=== PATIENT | male | born 1995 ===

== ENCOUNTER → 2022-11-09 08:41 | Outpatient (BNVA) | payer OTHER, SELFPAY | PROVIDERS: Visit Provider Physician Assistant ==

== ENCOUNTER → 2022-11-13 08:08 | Outpatient (BNVA) | payer OTHER, SELFPAY | PROVIDERS: Visit Provider Surgery ==

== ENCOUNTER 2022-11-23 11:09 | Outpatient (REF) | payer OTHER, SELFPAY ==
--- NOTE | ~2022-11-23 | XR_ITS ---
EXAMINATION: XR CHEST CLINICAL INFORMATION: Morbid/severe obesity due to excess calories COMPARISON: None available. TECHNIQUE: 2 views of the chest were obtained. FINDINGS: No significant abnormality is noted involving the heart, lungs, mediastinum, bony thorax or soft tissues. XR/XR chest 2V IMPRESSION: Unremarkable chest examination.
--- NOTE | 2022-11-23 11:18 | ECG_ITS ---
Test Reason : MORBID OBESITY Blood Pressure : / mmHG Vent. Rate : 069 BPM Atrial Rate : 069 BPM P-R Int : 130 ms QRS Dur : 098 ms QT Int : 390 ms P-R-T Axes : 035 045 021 degrees QTc Int : 417 ms Normal sinus rhythm Normal ECG No previous ECGs available Referred By: Raudel Gutierrez Electronically Signed By:AARON ROGERS MD
[2022-11-23 11:25] LABS: MANUAL DIFF FLAG NO
[2022-11-23 11:56] LABS: Basophils Absolute Auto 0.1 X10*3/uL (0.0-0.2); Basophils Percent Auto 0.8 % (0-2); Eosinophils Absolute Auto 0.2 X10*3/uL (0.0-0.4); Eosinophils Percent Auto 3.2 % (0-4); Hematocrit 45.4 % (42.0-52.0); Hemoglobin 14.8 g/dl (14.0-18.0); Imm Gran Abs Auto 0.02 X10*3/uL (0.00-0.03); Imm Gran Pct Auto 0.3 % (0.0-0.4); Lymphocytes Absolute Auto 2.2 X10*3/uL (1.2-4.9); Mean Corpuscular HGB Conc 32.6 g/dl (31.0-36.0); Mean Corpuscular Hemoglobin 28.8 pg (27.0-33.0); Mean Corpuscular Volume 88.5 fL (80.0-98.0); Mean Platelet Volume 11.2 fL (9.4-12.4); Monocytes Absolute Auto 0.5 X10*3/uL (0.1-1.2); Monocytes Percent Auto 7.3 % (2-11); Neutrophils Absolute Auto 3.3 x10*3/uL (2.0-8.3); Neutrophils Percent Auto 53.4 % (45-73); Platelet Count 293 X10*3/uL (160-400); Red Blood Count 5.13 X10*6/uL (4.60-5.80); Red Cell Distribution Width 12.4 % (11.0-16.0); White Blood Count 6.3 X10*3/uL (4.8-10.8)
[2022-11-23 12:24] LABS: Estimated Average Glucose 108 mg/dL; Hemoglobin A1c % 5.4 %
[2022-11-23 12:38] LABS: Alanine Aminotransferase 27 U/L (0-40); Albumin Level 4.1 g/dL (3.5-5.0); Alkaline Phosphatase 82 U/L (39-117); Anion Gap 14 (12-20); Aspartate Amino Transferase 19 U/L (5-37); Bilirubin Total 0.7 mg/dL (0.0-1.0); Blood Urea Nitrogen 8 mg/dL (9-16); C Reactive Protein 0.86 mg/dL (< or = 0.50); Calcium 9.5 mg/dL (8.4-10.2); Carbon Dioxide 25 mmol/L (22-29); Chloride 107 mmol/L (96-108); Cholesterol 146 mg/dL; Estimated Glomerular Filt Rate > 60; Glucose Random 87 mg/dL (60-115); HDL Cholesterol 37 mg/dL; Iron 82 mcg/dL (45-160); LDL Cholesterol Calculated 99 mg/dl; Percent Iron Saturation 26 % (15-50); Potassium 4.4 mmol/L (3.3-5.1); Sodium 142 mmol/L (135-145); Total Iron Binding Capacity 317 mcg/dL (228-428); Total Protein 7.3 g/dL (6.5-8.0); Triglycerides 52 mg/dL; Unsaturated Iron Binding 235 ug/dL
[2022-11-23 13:11] LABS: Ferritin 96 ng/mL (20-250); Folate 7.9 ng/mL (> or = 4.0); TSH reflex Free T4 1.45 uIU/mL (0.32-4.0); Vitamin B12 203 pg/mL (200-900); Vitamin D 25-OH Total 12.1 ng/mL (>30)
[2022-11-23 13:21] LABS: Insulin 27 uU/mL (2-29)
[2022-11-27 15:24] LABS: Calcium (PTHI) 9.4 mg/dL (8.6-10.3); PTHI 40 pg/mL (16-77)
[2022-11-27 23:38] LABS: Zinc 53 mcg/dL (60-130)
[2022-11-30 00:59] LABS: Vitamin A 30 mcg/dL (38-98)
[2022-12-02 15:23] LABS: Vitamin B1 11 nmol/L (8-30)
== END 2022-11-23 11:10 | disposition home or self-care (01) ==
LOC: HO.XRAY 11:09
PROVIDERS: Visit Provider Surgery
DX: E66.01 Morbid (severe) obesity due to excess calories (principal)
CPT/HCPCS: 36415; 71046; 80053; 80061; 82306; 82607; 82728; 82746; 83036; 83525; 83540; 83970; 84425; 84443; 84590; 84630; 85025; 86140; 93005

== ENCOUNTER → 2022-12-01 14:44 | Outpatient (BNVA) | payer OTHER, SELFPAY | PROVIDERS: Visit Provider Physician Assistant Surgical | DX: Z11.0 Encounter for screening for intestinal infectious diseases (principal) | CPT/HCPCS: 99211 ==

== ENCOUNTER 2022-12-01 18:03 | Outpatient (REF) | payer OTHER, SELFPAY ==
[2022-12-06 13:21] LABS: H Pylori Breath Test Negative (Negative)
== END 2022-12-01 18:04 | disposition home or self-care (01) ==
LOC: HO.LNP 18:03
PROVIDERS: Visit Provider Surgery
DX: E66.01 Morbid (severe) obesity due to excess calories (principal); Z11.0 Encounter for screening for intestinal infectious diseases
CPT/HCPCS: 83013

== ENCOUNTER → 2022-12-06 08:10 | Outpatient (BNVA) | payer OTHER, SELFPAY | PROVIDERS: Visit Provider Surgery | DX: E66.01 Morbid (severe) obesity due to excess calories (principal) ==

== ENCOUNTER → 2022-12-07 15:00 | Outpatient (BNVA) | payer OTHER, SELFPAY | PROVIDERS: Visit Provider Counselor Mental Health | DX: F43.20 Adjustment disorder, unspecified (principal); E66.01 Morbid (severe) obesity due to excess calories ==

== ENCOUNTER → 2022-12-12 16:05 | Outpatient (BNVA) | payer OTHER, SELFPAY | PROVIDERS: Visit Provider Dietitian, Registered | DX: E66.01 Morbid (severe) obesity due to excess calories (principal); Z68.41 Body mass index [BMI] 40.0-44.9, adult | CPT/HCPCS: 97802 ==

== ENCOUNTER → 2023-01-08 08:11 | Outpatient (BNVA) | payer OTHER, SELFPAY | PROVIDERS: Visit Provider Surgery ==

== ENCOUNTER 2023-01-19 08:12 | Outpatient (REF) | payer OTHER, SELFPAY ==
--- NOTE | ~2023-01-19 | US_ITS ---
EXAMINATION: US COMPLETE ABDOMEN WITH LIVER ELASTOGRAPHY CLINICAL INFORMATION: Obesity COMPARISON: None available. TECHNIQUE: Real-time imaging of the abdominal viscera. Noninvasive ultrasound liver fibrosis assessment is performed using Kvng ElastPQ point quantification shear wave elastography (2D-SWE) with a C5-2 MHz transducer. Multiple elastography samples are obtained. FINDINGS: PANCREAS: Not well visualized due to overlying bowel gas. ABDOMINAL AORTA: The proximal, middle, and distal aortic segments are normal in caliber. INFERIOR VENA CAVA: Visualized portions are normal. LIVER: Liver echotexture is slightly increased. The liver is normal in size and contour. No focal lesion or intrahepatic biliary duct dilatation. The right lobe measures 16 cm in length. The left lobe measures 12 cm in length. Portal flow is normal/hepatopedal Shear wave liver elastography median stiffness is 1.3 m/s (reference: normal median stiffness is 1.3 m/s or less). IQR/median stiffness to assess sampling precision is 0.08 (reference: good quality data set is IQR/median stiffness of 0.15 or less). GALLBLADDER: Small echogenic densities adjacent to the gallbladder wall questionable for small gallbladder wall polyps. Largest measures 3 x 4 x 4 mm. No gallstones. The gallbladder is normal in size. COMMON BILE DUCT: Normal in caliber measuring 0.3 cm in diameter. RIGHT KIDNEY: Normal. No hydronephrosis. No renal calculi or focal parenchymal lesions. The kidney measures 12 cm in maximum dimension. LEFT KIDNEY: Normal. No hydronephrosis. No renal calculi or focal parenchymal lesions. The kidney measures 12 cm in maximum dimension. SPLEEN: Normal. The spleen measures 11.4 cm in maximum dimension. FREE FLUID: None. US/US abdomen comp w elastography IMPRESSION: 1. Impression: Slightly echogenic liver probably representing fatty infiltration. Small gallbladder wall polyps. Nonvisualization of the pancreas. 2. Liver elastography: Adequate liver sampling. In the absence of other known clinical signs, rules out compensated advanced chronic liver disease. REFERENCE: Society of Radiologists in Ultrasound Liver Stiffness Thresholds (2020): LIVER STIFFNESS THRESHOLDS: *Liver Stiffness equal or less than 1.3 m/s: High probability of being normal. *Liver Stiffness less than 1.7 m/s: In the absence of other known clinical signs, rules out compensated advanced chronic liver disease. *Liver Stiffness 1.7-2.1 m/s: Suggestive of compensated advanced chronic liver disease but need further test for confirmation. *Liver Stiffness over 2.1 m/s: Rules in compensated advanced chronic liver disease. *Liver Stiffness over 2.4 m/s: Suggestive of clinically significant portal hypertension. QUALITY OF DATA SET: *IQR/Median value equal or less than 0.15 implies a quality data set. *IQR/Median value over 0.15 implies a poor quality data set. SIGNIFICANT CHANGE FROM PRIOR EXAM: Significant change if liver stiffness measurement is 10% or greater from prior exam. OTHER CONSIDERATIONS: The stage of liver fibrosis may be overestimated in the setting of acute hepatitis, liver inflammation, elevated liver function tests, hepatic vascular congestion, obstructive cholestasis, non-fasting state, and infiltrative diseases such as amyloidosis and lymphoma. In some patients with NAFLD, the liver stiffness thresholds for compensated advanced chronic liver disease may be lower. In causes other than viral hepatitis and NAFLD, liver stiffness thresholds are not well established.
--- NOTE | ~2023-01-19 | FL_ITS ---
EXAMINATION: XR FLUOROSCOPY UPPER GI WITH AIR CLINICAL INFORMATION: Obesity COMPARISON: None available. TECHNIQUE: Upper GI was performed using thin and thick barium and effervescent granules. FINDINGS: Esophageal motility is normal. No hernia or reflux. The stomach and duodenum are normal. No fold thickening, mass, ulcer or stricture. FLUOROSCOPY TIME: 0.3 minutes DOSE AREA PRODUCT: 3.2 Muro per centimeter squared. Total dose 40 mgy. 15 saved fluoroscopic images. FL/FL upper GI w air IMPRESSION: Unremarkable examination.
== END 2023-01-19 08:13 | disposition home or self-care (01) ==
LOC: HO.US 08:12
PROVIDERS: Visit Provider Surgery
DX: E66.01 Morbid (severe) obesity due to excess calories (principal)
CPT/HCPCS: 74246; 76705; 76981

== ENCOUNTER 2023-02-05 13:53 | Outpatient (AMB) | payer OTHER, SELFPAY ==
[2023-02-05 12:35] VITALS: BMI 41.5
--- NOTE | 2023-02-05 12:35 | A.OFFVIS_ITS ---
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 He states he is doing well. Meal plan: 2?Isopure Infusions protein shakes (1 scoop each in water), 8-10, 11-1 one Zone Perfect protein bar, 2-4 5 pm meal (9 forks of protein and 9 forks salad or vegetables) Drinking 96 oz water Exercise plan: elliptical and stationary bike, 5 days per week, older machines and doesn't track calories, 45 minutes each piece. [facility] Medical History Morbid obesity Vitamin B12 deficiency Vitamin D deficiency Surgical History No history of previous surgery Family History Mother Asthma Father No problems noted. Daughter No problems noted. Social History Alcohol intake: never Patient Tobacco Use Status: Never used Tobacco Review of Systems Const All systems reviewed & are unremarkable except as noted in HPI and below Assessment & Plan Assessment & Plan (1) Morbid obesity: Code(s): E66.01 - Morbid (severe) obesity due to excess calories Plan: change meal plan : 2?Isopure Infusions protein shakes (1 scoop in first and 1/2 scoop in second), 8-10, 11-1 one Zone Perfect protein bar, 2-4 5 pm meal (9 forks of protein and 9 forks salad or vegetables) Discussed interval training on his exercise equipment. Maintaining speed but increasing resistance every 3 minutes to maximal effort then decrease in same fashion. Continue 45 minutes per equipment. He wanted to accelerate weight loss Reminded of upcoming appt Telehealth Telehealth Location of provider rendering services: practice address Location of patient: address on file Patient Identification confirmed using: Name, : Yes Telehealth method: video Patient verbally consented to treatment: Yes Patient verbally consented to billing insurance company: Yes Patient informed of any privacy concerns related to visit: Yes Minutes spent on Phone/Video with Pt.: 11 Coding Level of Care Code Tele Est Pt Level 3 (59314) Diagnoses Morbid obesity E66.01 Time Spent (min) 18
== END 2023-02-05 14:16 | disposition home or self-care (01) ==
LOC: HO.HBS 13:53
PROVIDERS: Visit Provider Physician Assistant Surgical
DX: E66.01 Morbid (severe) obesity due to excess calories (principal); Z68.41 Body mass index [BMI] 40.0-44.9, adult
CPT/HCPCS: 99213

== ENCOUNTER → 2023-02-05 13:53 | Outpatient (BNVA) | payer OTHER, SELFPAY | PROVIDERS: Visit Provider Physician Assistant Surgical ==

== ENCOUNTER → 2023-02-21 15:03 | Outpatient (BNVA) | payer OTHER, SELFPAY | PROVIDERS: Visit Provider Surgery ==

== ENCOUNTER 2023-02-28 08:05 | Outpatient (REF) | payer OTHER, SELFPAY ==
[2023-02-28 09:54] LABS: MANUAL DIFF FLAG NO
[2023-02-28 10:47] LABS: Basophils Absolute Auto 0.1 X10*3/uL (0.0-0.2); Eosinophils Absolute Auto 0.2 X10*3/uL (0.0-0.4); Eosinophils Percent Auto 3.3 % (0-4); Hematocrit 44.8 % (42.0-52.0); Hemoglobin 14.4 g/dl (14.0-18.0); Imm Gran Abs Auto 0.01 X10*3/uL (0.00-0.03); Imm Gran Pct Auto 0.2 % (0.0-0.4); Lymphocytes Absolute Auto 2.2 X10*3/uL (1.2-4.9); Lymphocytes Percent Auto 37.4 % (20-40); Mean Corpuscular HGB Conc 32.1 g/dl (31.0-36.0); Mean Corpuscular Hemoglobin 28.3 pg (27.0-33.0); Mean Corpuscular Volume 88.2 fL (80.0-98.0); Mean Platelet Volume 11.3 fL (9.4-12.4); Monocytes Absolute Auto 0.4 X10*3/uL (0.1-1.2); Monocytes Percent Auto 6.8 % (2-11); Neutrophils Percent Auto 51.3 % (45-73); Platelet Count 263 X10*3/uL (160-400); Red Blood Count 5.08 X10*6/uL (4.60-5.80); Red Cell Distribution Width 12.4 % (11.0-16.0); White Blood Count 5.8 X10*3/uL (4.8-10.8)
[2023-02-28 10:51] LABS: Partial Thromboplastin Time 35.2 SEC (26.0-36.4)
[2023-02-28 10:55] LABS: Estimated Average Glucose 103 mg/dL; Hemoglobin A1c % 5.2 %
[2023-02-28 11:53] LABS: Alanine Aminotransferase 19 U/L (0-40); Albumin Level 4.3 g/dL (3.5-5.0); Alkaline Phosphatase 81 U/L (39-117); Anion Gap 14 (12-20); Aspartate Amino Transferase 16 U/L (5-37); Bilirubin Total 0.5 mg/dL (0.0-1.0); Blood Urea Nitrogen 9 mg/dL (9-16); C Reactive Protein 0.83 mg/dL (< or = 0.50); Calcium 9.5 mg/dL (8.4-10.2); Carbon Dioxide 26 mmol/L (22-29); Chloride 107 mmol/L (96-108); Cholesterol 137 mg/dL; Estimated Glomerular Filt Rate > 60; Glucose Random 88 mg/dL (60-115); HDL Cholesterol 35 mg/dL; LDL Cholesterol Calculated 88 mg/dl; Potassium 4.3 mmol/L (3.3-5.1); Sodium 143 mmol/L (135-145); Total Protein 7.8 g/dL (6.5-8.0); Triglycerides 73 mg/dL
[2023-02-28 12:08] LABS: Insulin 14 uU/mL (2-29); TSH reflex Free T4 1.43 uIU/mL (0.32-4.0)
== END 2023-02-28 08:06 | disposition home or self-care (01) ==
LOC: HO.LAB 08:05
PROVIDERS: Visit Provider Surgery
DX: E66.01 Morbid (severe) obesity due to excess calories (principal); Z71.3 Dietary counseling and surveillance; Z79.899 Other long term (current) drug therapy
CPT/HCPCS: 36415; 80053; 80061; 83036; 83525; 84443; 85025; 85610; 85730; 86140

== ENCOUNTER 2023-02-28 08:05 | Outpatient (AMB) | payer OTHER, SELFPAY ==
--- NOTE | 2023-02-28 09:05 | MHC.OFFVISWM ---
Intake VS Expanded 02/28/23 09:17 Height 5 ft 10 in Weight 284 lb BMI 40.7 Body Fat 109.9 Body Fat Percentage 38.7 Free Fat Mass 174.2 Visceral Mass 19 Water Mass 123.2 BMR 2,468 Intake Visit Reasons: TV Pre Op LSG 03/07/23 Allergies No Known Allergies Allergy (Verified 02/28/23 09:08) Medication List - Last Reconciled 02/28/23 by Raudel Gutierrez MD cholecalciferol (vitamin D3) 125 mcg PO DAILY mecobalamin (vitamin B12) 1,000 mcg sublingual DAILY ondansetron 4 mg PO Q12H pantoprazole 40 mg PO DAILY polyethylene glycol 3350 (Miralax) 17 grams PO DAILY sucralfate 10 mL PO BID vitamin A palmitate 10,000 units PO DAILY zinc gluconate 10 mg PO DAILY HPI TV Pre Op LSG 03/07/23 HPI Details Start time: 9.01am, End time: 9.26am ?I spent 20 minutes speaking with the patient on the phone plus an additional 5 minutes reviewing and updating records for a total of 25 minutes HPI Comments History of Present Illness Details Overall weight loss: 26.1lbs, or 8.42% TBWL Is doing 1 Isopure protein shake (1 scoop in water), one more Isopure shake (1/2 scoop in water), one Zone Perfect protein bar and one meal (9 forks of protein and 9 forks of salad or vegetables) Exercise: is doing the bike and the elliptical daily for 45 minutes to each [facility] Medical History Morbid obesity Vitamin B12 deficiency Vitamin D deficiency Surgical History No history of previous surgery Family History Mother Asthma Father No problems noted. Daughter No problems noted. Social History Are you a primary healthcare corporate account director to a significant other at home: No Do you presently have visiting nurse or other home services: No Alcohol intake: never Patient Tobacco Use Status: Never used Tobacco Assessment & Plan Assessment & Plan (1) Morbid obesity: Code(s): E66.01 - Morbid (severe) obesity due to excess calories Plan: 1. Plan for lap sleeve gastrectomy including upper GI endoscopy. All tests has been completed and reviewed and the patient is cleared for the surgery. ?If diaphragmatic or ventral hernias are present at time of surgery, these will be repaired laparoscopically as well. Risks and complications were discussed in detail including possible conversion to an open procedure, anastomotic leak, bleeding requiring transfusion, small bowel obstruction, , DVT and pulmonary embolism, cardiac, or pulmonary complications, as intermodal truck driver complications such as anastomotic ulcer, insufficient weight loss and vitamin deficiencies. I emphasized the importance of close follow-up, adherence to instructions and good communication. So far he has proven to be an excellent communicator and very compliant with all our directions accomplishing a great weight loss. I believe that he is an excellent candidate and he is ready. 2. Preop prescriptions were provided and explained the purpose of each one. Need to be purchased preop. Start Pantoprazole now as you get it from the pharmacy, 1 pill per day. Sucralfate and Zofran are for after surgery as needed. 3. Bowel prep: please do 7 packets ?of Miralax mixing each one with a an 8oz glass of water, crystal light, gatorade zero, or propel ?on 03/05/23 and the same amount on 03/06/23. Continue the protein shakes during? the bowel prep. 4. Needs to purchase 1oz medicine cups . 5. Needs to purchase Children's liquid Tylenol for postop pain control. 6. Avoid aspirin, motrin, Advil, Aleve, Ibuprofen, Naproxyn. Tylenol is OK. 7. He needs to purchase the Celebrate 4:1 protein shakes from the hospital's gift shop. 8. Will do basic preop blood work-up any day between Sunday02/28/23 and Sunday03/02/23 fasting for 12 hours and is scheduled to see the Anesthesiologist prior to the day of surgery. 9. Importance of adherence to postop folllow-up and recommendations was underscored and he understands that. 10. Stop food and bars as of today 02/28/23 and continue with one Isopure protein shake (ONE scoop in 8oz water) at 8am-10am, THREE Premier premade protein [place] at 11am-1pm, 2pm-4pm and 5pm-7pm and one more Isopure protein shake with ONE scoop in 8oz of water at 8pm-10pm 11. No soups, broths or V8 12. The patient's?medical?history has been reviewed and they are considered low risk for post op DVT and therefore DVT prophylaxis is not considered necessary. Travel after surgery was reviewed. The patient has not disclosed any travel plans during the first 30 days after surgery and they have been advised that within the first 30 days after surgery any bus, plane, train or car travel over 2 hours in duration is contraindicated due to the possibility of developing blood clots from immobility. Any travel, needs to include periods of ambulation of 10 minutes in duration every 2 hours.? Patient was instructed to discuss any plans for travel during this period with their bariatric surgeon.? 13. Please take at the day of surgery the following medications: 14. Absolutely no smoking or vaping, or marijuana until the surgery and for at least the first 4 weeks. Only nicotine patches are allowed. 15. Send me weight measurements on Sunday and then on next Sunday the day of surgery before you go to the hospital. 16. Avoid any steroids by mouth for any reason. Let me know if someone prescribes them to you Orders: Orders Type and Screen Today E66.01 - Morbid (severe) obesity due to excess calories Comprehensive Met. Panel Today E66.01 - Morbid (severe) obesity due to excess calories C Reactive Protein Today E66.01 - Morbid (severe) obesity due to excess calories Hemoglobin A1c Today E66.01 - Morbid (severe) obesity due to excess calories Insulin Today E66.01 - Morbid (severe) obesity due to excess calories Lipid Panel Today E66.01 - Morbid (severe) obesity due to excess calories TSH reflex Free T4 Today E66.01 - Morbid (severe) obesity due to excess calories Prothrombin Time INR Today E66.01 - Morbid (severe) obesity due to excess calories Partial Thromboplastin Time Today E66.01 - Morbid (severe) obesity due to excess calories Complete Blood Count Auto Diff Today E66.01 - Morbid (severe) obesity due to excess calories Medications: New pantoprazole 40 mg PO DAILY 30 tabs 3RF K21.9 - Gastro-esophageal reflux disease without esophagitis sucralfate 10 mL PO BID 400 mL 2RF K21.9 - Gastro-esophageal reflux disease without esophagitis ondansetron 4 mg PO Q12H 20 tabs 0RF nausea and vomiting R11.0 - Nausea polyethylene glycol 3350 (Miralax) Mix each packet with 8oz of water, Crystal light, or Gatorade zero, or Propel and do 7 packets on 03/05/23 and another 7 packets on 03/06/23 17 grams PO DAILY 14 ea 0RF Z01.818 - Encounter for other preprocedural examination Discontinued vitamin A palmitate 10,000 units orally one per day; 30 caps 1RF E50.9 - Vitamin A deficiency, unspecified Telehealth Telehealth Location of provider rendering services: practice address Location of patient: address on file Patient Identification confirmed using: Name, : Yes Telehealth method: voice only Patient verbally consented to treatment: Yes Patient verbally consented to billing insurance company: Yes Patient informed of any privacy concerns related to visit: Yes Minutes spent on Phone/Video with Pt.: 25 Coding Level of Care Code Tele Est Pt Level 3 (57583) Diagnoses Morbid obesity E66.01 Time Spent (min) 25
[2023-02-28 09:17] VITALS: BMI 40.7
== END 2023-02-28 09:27 | disposition home or self-care (01) ==
LOC: HO.HBS 08:05
PROVIDERS: Visit Provider Surgery
DX: E66.01 Morbid (severe) obesity due to excess calories (principal); Z68.38 Body mass index [BMI] 38.0-38.9, adult
CPT/HCPCS: 99213

== ENCOUNTER 2023-03-07 06:11 | Inpatient (IN) | payer OTHER, SELFPAY ==
[2023-02-27 10:58] VITALS: BMI 40.9
--- NOTE | 2023-03-02 23:25 | P.HPSUR_ITS ---
Pre-Procedural Eval Section A Date of Service: 03/02/23 The patient is an INPATIENT: No The History & Physical has been completed within 30 days and I have reviewed it.: Yes Section B Chief Complaint: Morbid (severe) obesity due to excess calories Relevant Family History (Specify if Yes): No Relevant Social History: None Present Medications: None Medical History: No relevant PMH History of Previous Operations: No relevant previous surgery Allergies: Allergies Allergy/AdvReac Type Severity Reaction Status Date / Time No Known Allergies Allergy Verified 02/28/23 09:08 Review of Systems Sugical H&P ROS: Negative: Constitution, Cardiovascular, Respiratory, Neurological, Psychiatric, Hem-Onc, Allergic/Immunologic, Gastrointestinal, Genitourinary, Musculoskeletal, Integumentary, Endocrine and Eyes/Ears/Nos e/Throat Exam Surgical H&P Exam: Normal: HEENT, Normal: Heart, Normal: Lungs, Normal: Extremities, Normal: Abdomen, Normal: Skin and Normal: Neurological Plan Diagnosis/Plan: Unchanged I have reviewed the history and physical and performed a pertinent physical examination on my patient. No changes have occurred unless specified. Time Spent With Patient Time: Total time managing care of this patient today ____ minutes.
--- NOTE | 2023-03-06 09:16 | HO.ANESPROP2 ---
Documented by User: Lilliam Jerez NP 03/06/23 09:17 HPI - Anesthesia Eval Consult details Narrative: 27yo M for Gastrectomy Sleeve,EGD,poss diaphragmatic hernia,poss ventral hernia,poss open, PMFSH Active Problems Active Problems: All Active Problems (Updated 12/07/22 @ 15:24 by Carola Hurst) Adjustment disorder, unspecified (Acute) Vitamin A deficiency (Acute) Zinc deficiency (Acute) Vitamin B12 deficiency (Acute) Vitamin D deficiency (Acute) Morbid obesity (Acute) Past Medical History Medical History Morbid obesity Vitamin B12 deficiency Vitamin D deficiency Family History Family History Mother Asthma Father No problems noted. Daughter No problems noted. Surgical History Surgical History No history of previous surgery Social History Social History Are you a primary lpn care manager to a significant other at home: No Do you presently have visiting nurse or other home services: No Alcohol intake: never Patient Tobacco Use Status: Never used Tobacco Use of substances other than those prescribed or required for medical reasons: No Have you been hit, kicked, punched, or otherwise hurt by someone within the past year? If so, by whom?: No Are you DNR?: No Advance Directives: No Advance Directives Information Provided: No Advance Directives on File: No Recently lost weight without trying: No Eating poorly because of decreased appetite: No Nutrition Risks: No Nutritional Risk Poor oral hygiene: No (one chipped tooth lower left molar) Meds Allergies Allergy/AdvReac Type Severity Reaction Status Date / Time No Known Allergies Allergy Verified 02/28/23 09:08 Home Medications Medication Instructions Recorded Confirmed Last Taken Type vitamin A palmitate 3,000 mcg 10,000 unit PO DAILY 02/27/23 02/28/23 03/06/23 History (10,000 unit) capsule Exam Exam Date and Time: March 06, 2023 0916 Height,Weight and Vital Signs: Height 5 ft 10 in Weight 129.274 kg Pertinent Lab Results Pertinent Lab Results: Laboratory Tests 02/28/23 09:46 Blood Type O Positive Antibody Screen NEGATIVE Laboratory Tests 02/28/23 02/28/23 09:52 09:52 WBC 5.8 Hgb 14.4 Hct 44.8 Plt Count 263 Sodium 143 Potassium 4.3 Chloride 107 Carbon Dioxide 26 BUN 9 Creatinine 0.80 Narrative Narrative: EKG 11/2022 Vent. Rate : 069 BPM ? ? Atrial Rate : 069 BPM ?? P-R Int : 130 ms? QRS Dur : 098 ms ? ? QT Int : 390 ms ? ? ? P-R-T Axes : 035 045 021 degrees ?? QTc Int : 417 ms ? Normal sinus rhythm Normal ECG No previous ECGs available Assessment and Plan Assessment Anesthesia Assessment: Chart Reviewed Documented by User: Maria M Bear MD 03/07/23 07:27 [facility] Past Medical History Medical History Morbid obesity Vitamin B12 deficiency Vitamin D deficiency Family History Family History Mother Asthma Father No problems noted. Daughter No problems noted. Surgical History Surgical History No history of previous surgery History of Problems with Anesthesia: No Social History Social History Are you a primary lpn care manager to a significant other at home: No Do you presently have visiting nurse or other home services: No Alcohol intake: never Patient Tobacco Use Status: Never used Tobacco Use of substances other than those prescribed or required for medical reasons: No Have you been hit, kicked, punched, or otherwise hurt by someone within the past year? If so, by whom?: No Are you DNR?: No Advance Directives: No Advance Directives Information Provided: No Advance Directives on File: No Recently lost weight without trying: No Eating poorly because of decreased appetite: No Nutrition Risks: No Nutritional Risk Poor oral hygiene: No (one chipped tooth lower left molar) Meds Allergies Allergy/AdvReac Type Severity Reaction Status Date / Time No Known Allergies Allergy Verified 02/28/23 09:08 Home Medications Medication Instructions Recorded Confirmed Last Taken Type vitamin A palmitate 3,000 mcg 10,000 unit PO DAILY 02/27/23 02/28/23 03/06/23 History (10,000 unit) capsule Exam Airway Mallampati Class: II TM Dist: >3cm Neck ROM: Full Loose/Missing/Broken Teeth: No Heart: RRR Lungs: CTA Assessment and Plan Assessment Anesthesia Assessment: Anesthesia Plan Discussed Final Anesthetic Review History of Problems with Anesthesia: No NPO: Yes ASA Class: III Final Preanesthetic Review: Meds/Allgs Chart Reviewed, Consent Obtained/Reviewed and Anes Risks/Benef Reviewed Patient Risk: Intermediate Procedure Risk: Intermediate Anesthetic Plan Anesthetic Plan: GA Disposition: Standard PACU
[2023-03-07] VITALS (15 sets, daily range): BP systolic 126–156; BP diastolic 63–90; PULSE 89–98; RESP 14–20; TEMP 36–36.4; O2SAT 94–99
[2023-03-07] MEDS: Lactated Ringers 1,000 ML 999 ML IV (06:41)
[2023-03-07] MEDS: Aprepitant 32 MG/4.4 ML VIAL IVPUSH (06:41)
--- NOTE | 2023-03-07 07:28 | PHA.MEDREC ---
Pharmacy Consult ? Medication Reconciliation Pharmacy has completed the medication reconciliation. Pharmacy has reviewed med rec done by May Rodrigez.
--- NOTE | 2023-03-07 07:36 | PC.NURSE ---
patient c/o muscle soreness starting few days ago. anesthesia at bedside and aware.
--- NOTE | 2023-03-07 07:45 | P.BOP_ITS ---
Brief Operative Note Date of Service: 03/07/23 Pre-op diagnosis: Morbid obesity with comorbidities (see below) Post-op diagnosis: same Procedure: INITIAL PATIENT BMI ON PRESENTATION AT OUR OFFICE: 44.5 kg/m2 LAST BMI BEFORE SURGERY: 40.8 kg/m2 COMORBIDITIES: liver steatosis ?The patient presented to the Weight Management Program with significant obesity that was negatively impacting the patient's comorbidities as listed above.? The program is a phased program with a special focus on preoperative medical weight management to promote substantial weight loss and prepare the patients for the second phase of the program: bariatric surgery. The patient participated in an intensive weekly lifestyle ?intervention and exercise program during which the patient ?has lost between the initial office visit and the last preoperative visit 28.5lbs, or 9.19% of initial actual body weight. It was deemed appropriate for the patient to now have bariatric surgery. In light of the current Covid-19 pandemic and the well documented strong association of obesity and increased risk of worse outcomes if infected with Covid-19 (REFERENCES: https://pubmed.ncbi.nlm.nih.gov/90042408/ ,? https://pubmed.ncbi.nlm.nih.gov/3 9341286/ ), any delay in undergoing bariatric surgery may lead to the patient's worsening health condition and increased?risk of more severe Covid-19 disease if infected. In addition a recent?study from [facility] published in [facility] on 07/18/2021 ([email or web address]) found that, among patients with obesity, substantial weight loss achieved with surgery was associated with improved outcomes of COVID-19 infection. The findings suggest that obesity can be a modifiable risk factor for the severity of COVID-19 infection. In addition, the patient met the BMI-criteria for bariatric surgery based on the BMI on initial presentation. The patient should not be penalized for achieving such weight loss because ?it is not sustainable long-term without surgical intervention and it was achieved in preparation for bariatric surgery ?under my direction and based on my published research ([email or web address]).[email or web address] and? https://www.soard.org/article/[email or web address](03)33670-X/pdf ) ?that a 10% preoperative weight loss improves long-term weight loss after surgery and reduces perioperative complications.? Insurance carriers such as [facility] have endorsed my recommendations ?and have included in their policies criteria to include a 10% preoperative weight loss requirement. PROCEDURE: Esophago-gastroscopy, laparoscopic sleeve gastrectomy and laparoscopic gastropexy INDICATIONS: This is a 27 year-old male who was electively scheduled for laparoscopic, possibly open sleeve gastrectomy. The risks and complications of the procedure were discussed with the patient in advance, particularly the possibility of ; pulmonary embolism; staple line leak; bleeding; GERD; cardiac, pulmonary, or renal complications; as well as long-term problems such as insufficient weight loss, vitamin deficiency, strictures, or ulcers. The patient understood all the risks, and was in agreement to proceed with surgery. DESCRIPTION OF PROCEDURE: After informed consent was obtained from the patient, the patient was given preoperative antibiotics, and was transferred to the operating room. After successful induction of general anesthesia, pneumatic compression devices were placed on both lower extremities. An upper endoscopy was performed next. The oropharynx and esophagus appeared to be within normal limits. There was no diaphragmatic hernia present size consistent with the findings of the preoperative upper GI. The stomach was entered. Then after all fluid and air were suctioned and the stomach was fully decompressed, the scope was withdrawn and secured in the mid esophagus. The patient was then prepped and draped in the usual sterile manner, and abdominal access was established at the right upper quadrant with the Litzy technique. A 12 mm blunt port was inserted, and the abdomen was insufflated with CO2 to a pressure of 15 mmHg. Under direct visualization, additional ports were placed, specifically two 5 mm Versi-step ports to the left upper quadrant, and a 5 mm Versi-Step port to the right upper quadrant. 1% lidocaine plain was used to infiltrate all port sites as well as all fascia defects. Following that, the patient was placed in a steep reverse Trendelenburg position. An additional 5 mm port was placed to the right flank for the Mediflex retractor that was used to retract the left lobe of the liver. The gastro-esophageal fat pad was opened with the ultrasonic device (Thstephanyerbeat, Olympus) and the anterior esophagus and hiatus were exposed. The angle of His was opened with the ultrasonic device the fundus of the stomach from any diaphragmatic and splenic attachments. I then opened the gastrocolic ligament between the transverse colon and the greater curvature of the stomach with the ultrasonic device to enter the lesser sac and facilitate the ligation of the short gastric vessels. I started at a mid-point along the greater curvature and using the Thunderbeat, all short gastric vessels were divided all the way to the angle of His until the left kamilla was completely dissected at its entirety. I then divided the gastro-colic ligament distally to a distance of about 3-4 cm proximal to the pylorus. The stomach was then divided transversely with one Endo DANTE-45 purple and four DANTE-60 articulating purple loads using the [employer] Warrior stapler and loads. Every effort was made that the gastric sleeve had a tubular shape and an even caliber throughout. Once the sleeve resection was completed, the staple line of the ga stric sleeve was reinforced with Hemoclips. The resected stomach was retrieved without difficulty from the Litzy port. A gastropexy was then performed in order to prevent postoperative GERD and par tial gastric volvulus. Several interrupted 2.0 Surgidac sutures were placed between the sleeve's staple line and the previously divided greater omentum and gastro-colic ligament using the Endo-Stitch device. ?An upper endoscopy was performed. There was no narrowing at the GE junction. The scope was easily advanced all the way to the pylorus which was clearly visualized. There was no narrowing anywhere and the sleeve's caliber was even throughout. The sleeve's staple line was inspected and there was no evidence of ischemia, bleeding or dehiscence. At that point the gastroscope was withdrawn fr om the patient?s mouth while we were decompressing the bowel and the stomach from any remaining air. I looked into the lesser sac to see how the sleeve was situating and it was situating well. There was no bleeding from the staple line, spleen, or short gastric vessels. The Mediflex retractor was removed, and the undersurface of the liver was inspected and there was no bleeding. The patient was placed in supine position. I closed the fascial defect of the 12 mm port site with a figure of eight #1 Polysorb suture. Then 30cc Ropivacaine plain with 10 mg of Dexamethasone were used to infiltrate the fascial closure as well as all skin incisions. A total of 7ml Zynrelef was applied in the Litzy wound. At this point, the abdomen was deflated, all ports were removed under direct vision, and no bleeding was noted from any of the port sites. The skin incisions were irrigated with saline and were closed with 4-0 absorbable monofilament sutures. Steri-Strips and OpSites were used to cover all incisions. The patient was extubated and was transferred in stable condition to the recovery room for further care. I was present and performed all [place] parts of the procedure. Ms. Almonte was the surgical first assistant. There were no residents to assist with this case. Lyle Gutierrez MD, PhD, FACS Surgeon: Raudel Gutierrez MD Anesthesia: GETA, local and other (TAP block and 7ml Zynrelef) Was an Bulk Station Agent used for this Procedure?: No Bulk Station Agent: Mary Almonte Estimated blood loss (mL): 10 IV fluids (mL): 3,000 Urine output (mL): 0 (No Almonte to record output) Pathology: other (Stomach) Condition: stable Disposition: PACU
--- NOTE | 2023-03-07 07:49 | P.PNGS_ITS ---
Subjective Subjective Date of Service: 03/08/23 Interval history: Feels well. Mild incisional pain. She is tolerating phase 1 bariatric diet Physical Exam Vital Signs: Vital Signs: Last Vital Signs Temp 97.5 F 03/07/23 06:31 Pulse 89 03/07/23 06:31 Resp 16 03/07/23 06:31 BP 144/76 H 03/07/23 06:31 Pulse Ox 99 03/07/23 06:31 O2 Del Method Room Air 03/07/23 06:31 BMI result Body Mass Index 40.9 GI: Inspection: Yes normal to inspection, Yes incision (clean, dry and intact) and Yes obesity Palpation (GI): Soft to palpation Extrem: Right lower extremity: normal to inspection (no calf tenderness) Left lower extremity: normal to inspection (no calf tenderness) Objective Data Active Medications Albuterol Sulfate (Albuterol Sulfate (0.083%) 2.5 Mg/3 Ml Vial.Neb) 2.5 mg INHALE ONCE PRN PRN Reason: Wheezing Fentanyl (Fentanyl Citrate/Pf 100 Mcg/2 Ml Vial) 50 mcg IVPUSH Q5M PRN; Protocol PRN Reason: Pain, Severe (Pain Scale 7-10) Fentanyl (Fentanyl Citrate/Pf 100 Mcg/2 Ml Vial) 25 mcg IVPUSH Q5M PRN; Protocol PRN Reason: Pain, Moderate(Pain Scale 4-6) Hydromorphone HCl (Hydromorphone Hcl 0.5 Mg/0.5 Ml Syringe) 0.25 mg IVPUSH Q5M PRN; Protocol PRN Reason: Pain, Severe (Pain Scale 7-10) Lactated Ringer's (Lr) 1,000 mls @ 100 mls/hr IVCONT .Q10H [facility] Lactated Ringer's (Lr) 1,000 mls @ 999 mls/hr IV .Q1H1M [facility] Stop: 03/07/23 08:15 Last Admin: 03/07/23 06:41 Dose: 999 mls/hr Documented By: FAUZIA Promethazine HCl 6.25 mg/ (Sodium Chloride) 50.25 mls @ 201 mls/hr IV ONCE PRN PRN Reason: Nausea and Vomiting Ondansetron HCl (Ondansetron Hcl 4 Mg/2 Ml Vial) 4 mg IVPUSH ONCE PRN PRN Reason: Nausea and Vomiting Oxycodone HCl (Oxycodone Hcl Immed Release 5 Mg Tablet) 5 mg PO ONCE PRN PRN Reason: Pain, Severe (Pain Scale 7-10) Oxycodone HCl (Oxycodone Hcl Immed Release 5 Mg Tablet) 10 mg PO ONCE PRN PRN Reason: Pain, Severe (Pain Scale 7-10) Labs 03/08/23 05:13 03/08/23 05:13 Procedures Date of Service Date of Service: 03/08/23 Progress Note: A&P Assessment and plan (1) Morbid obesity: Status: Acute Assessment and Plan: s/p laparoscopic sleeve gastrectomy and gastropexy Doing well Will check am labs and if OK the patient will be discharged home (2) Steatosis, liver: Status: Acute (3) S/P laparoscopic sleeve gastrectomy: Status: Acute Time Spent With Patient Time: Total time managing care of this patient today ____ minutes. Quality Stroke Does the patient have a stroke diagnosis?: No VTE Prior VTE?: No VTE Risk Level:: Surgical - moderate VTE Device Contraindication: N/A - Device Ordered VTE Drug Contraindication: Treatment Not Indicated
--- NOTE | 2023-03-07 10:11 | P.DS_ITS ---
DS: Providers Provider Date of Service: 03/08/23 Date of admission: 03/07/23 06:11 Primary care physician: Unknown Physician DS: Diagnosis Discharge Diagnosis (1) Morbid obesity: Status: Acute (2) Steatosis, liver: Status: Acute (3) S/P laparoscopic sleeve gastrectomy: Status: Acute DS: Summary Hospital Course Hospital Course: ADMITTING DIAGNOSIS: morbid obesity DISCHARGE DIAGNOSIS: same, s/p laparoscopic sleeve gastrectomy PAST SURGICAL HISTORY: none PROCEDURE: upper endoscopy, laparoscopic sleeve gastrectomy DISCHARGE SUMMARY: History of Present Illness: The patient is a 27 year-old man with a BMI of 44.3 kg/m2 and associated co- morbidities as described above. The patient had extensive work-up, lost 26.1 lbs preoperatively and was electively scheduled for laparoscopic, possible open sleeve gastrectomy and gastropexy. Risks and complications of the surgery were discussed with the patient in advance, particularly the possibility of , pulmonary embolism, anastomotic leak, bleeding, bowel injury, GERD, cardiac, renal or pulmonary complications. The patient understood all the risks and was in agreement with the surgical plan. Hospital Course: The patient underwent an uneventful laparoscopic sleeve gastrectomy with gastropexy on the day of admission. Postoperatively, the patient was transferred to the surgical floor. The patient received IV Acetaminophen and IV dilaudid for pain control. Patient was started on bariatric phase 1 diet POD #0. On postoperative day one, the patient was feeling well without nausea, vomiting, fevers, or tachycardia. The patient had some mild incisional pain and the abdomen was soft. On the morning of postoperative day one, the patient was continued on 1 ounce of water or ice every half hour. During the day, the patient did fairly well, having some incisional pain, but able to ambulate adequately and to tolerate liquids well. Since the patient is doing well, we decided that the patient was ready to be discharged. The patient was given instructions to follow-up with me next week and to call my office for any fever over 101, persistent abdominal pain, nausea, vomiting, GERD, symptoms of DVT such as calf tenderness, or leg swelling, or pulmonary embolism such as chest pain or shortness of breath. The patient was also instructed to drink 40-60 ounces of liquids per day using the 1-ounce cups. The patient had been given prescriptions for Tylenol for pain, Zofran prn for nausea, and pantoprazole and carafate previously. The patient was encouraged to ambulate and use the incentive spirometer. The patient was allowed to shower, but no baths, and encouraged to stay active at home. All of these instructions were given to the patient personally. All questions were answered and the patient understood all instructions, the instructions were also given to the patient in print. Time Spent with Patient Time attestation: Total time managing care of this patient today ____ minutes. Discharge coordination time: Less than 30 minutes Quality: Safe Use of Opioids Does Pt have an Active Cancer Diagnosis on the Problem List?: No Quality: Stroke Does the patient have a stroke diagnosis?: No Physical Exam Vital Signs: Vital Signs: Last Vital Signs Temp 97.5 F 03/07/23 06:31 Pulse 89 03/07/23 06:31 Resp 16 03/07/23 06:31 BP 144/76 H 03/07/23 06:31 Pulse Ox 99 03/07/23 06:31 O2 Del Method Room Air 03/07/23 06:31 BMI result Body Mass Index 40.9 DS: Data Data Completed and Pending Pending studies at discharge: Pending at discharge 03/07/23 09:26 Surgical [PTH] Routine Discharge Plan Discharge Anticipated Discharge Date/Time: 03/08/23 10:09 Patient Disposition: Home, Self-Care Discharge Diagnosis: s/p sleeve gastrectomy Referrals: Physician,Unknown J [Primary Care Provider] - 1 Week Discharge Medications: Continued pantoprazole 40 mg tablet,delayed release (DR/EC) 40 mg PO DAILY Qty: 30 3RF Patient Comments: for after surgery sucralfate 100 mg/mL suspension 10 ml PO BID Qty: 400 2RF Patient Comments: for after surgery ondansetron 4 mg tablet,disintegrating 4 mg PO Q12H Qty: 20 0RF Patient Comments: for after surgery Discontinued cholecalciferol (vitamin D3) 125 mcg (5,000 unit) capsule 125 mcg PO DAILY Qty: 30 2RF mecobalamin (vitamin B12) 1,000 mcg tablet,disintegrating 1,000 mcg sublingual DAILY Qty: 30 2RF Rx Instructions: place tablet under tongue and allow to dissolve for at least30 secs before swallowing zinc gluconate 10 mg lozenge 10 mg PO DAILY Qty: 100 0RF vitamin A palmitate 3,000 mcg (10,000 unit) capsule 10,000 unit PO DAILY Rx Instructions: 10,000 units orally one per day; Discharge Orders: Discharge Order (Routine); Ordered 03/08/23 Ordered By: Raudel Gutierrez Activity on Discharge: No heavy lifting Stand Alone Forms: Patient Portal Discharge page Care Plan Goals: weight loss Health Concerns: morbi obesity Plan of Treatment: No tub baths, sex or returning to work until discussed at first post op appointment. No exercise, alcohol, tobacco or illegal drug use. Continue to use incentive spirometer hourly while awake. Walk in home for 5- 10 minutes every 2 hours during the first week. Continue phase 1 diet today and start phase 2 diet tomorrow morning. Follow all instructions in the bariatric handbook and call with any questions. 1. Please call your doctor or come back to the emergency room should any new symptoms arise. 2. You will receive a courtesy call from [facility] 24-48 hours after discharge. 3. Activity: abstain from alcohol, practice limited stair climbing, no bending, no driving, no exercise, no illicit substances, no lifting, no sex, no tub bath, no work. 4. Diet: continue as discussed with bariatric team.. 5. Dressing Change/Wound Care: Do not change or remove surgical dressings unless they are wet or soiled. 6. Call your doctor if: - Your temperature exceeds 101.5 F - You experience excessive pain or swelling - You have an unexpected reaction to medication - You have excessive bleeding - You experience continued vomiting/nausea - Your incision begins to separate - Your incision shows signs of infection such as increased redness, swelling, excessive pain, heat, or drainage (light blood or clear fluid is normal) 7. General instructions: No lifting greater than 5 lbs for the next 4 weeks[address] driving within 24 hours of taking narcotic pain medications. If you do not move your bowels in the next 2 days, please take milk of magnesia over the counter. Please follow the post op diet and do not advance your diet until you are seen in the office in about 2 weeks. Please walk around your home every hour or two to prevent blood clots from forming in your legs. You do not need to wake from sleeping to walk. Please sleep in a bed or couch to prevent kinking at the hips and knees. Please take your incentive spirometer (your lung hand twister) home with you and use it for the next few days to prevent pneumonias. You may shower, no hot tubs, baths or swimming pools. Please call the office with any questions or concerns such as increasing abdominal pain, fever, chills, shortness of breath, chest pain, leg pain or swelling, or redness or drainage from your incisions. Do not hesitate to contact the office with any questions at . The patient's medical history has been reviewed and they are considered low risk for post op DVT and therefore DVT prophylaxis is not considered necessary. Travel after surgery was reviewed. The patient has not disclosed any travel plans during the first 30 days after surgery and they have been advised that within the first 30 days after surgery any bus, plane, train or car travel over 2 hours in duration is contraindicated due to the possibility of developing blood clots from immobility. Any travel, needs to include periods of ambulation of 10 minutes in duration every 2 hours. The patient was instructed to discuss any plans for travel during this period with their bariatric surgeon. Assessment: stable, post op sleeve gastrectomy
[2023-03-07 11:10] LABS: Hemoglobin 14.1 g/dl (14.0-18.0)
[2023-03-07 11:20] LABS: Anion Gap 19 (12-20); Blood Urea Nitrogen 6 mg/dL (9-16); Calcium 9.1 mg/dL (8.4-10.2); Carbon Dioxide 17 mmol/L (22-29); Chloride 104 mmol/L (96-108); Creatinine Clr Calc Pharmacy 128.1; Estimated Glomerular Filt Rate > 60; Glucose Random 106 mg/dL (60-115); Potassium 4.4 mmol/L (3.3-5.1); Sodium 136 mmol/L (135-145)
[2023-03-07] MEDS: Lactated Ringers 1,000 ML 100 ML IVCONT ×2 (11:44→19:59)
[2023-03-07] MEDS: Famotidine/PF 20 MG/2 ML VIAL IVPUSH ×2 (11:44→19:58)
[2023-03-07] MEDS: ceFAZolin Sodium/Dextrose,Iso 2 GM/50 ML PIGGYBACK IV (13:48)
[2023-03-07] MEDS: ondansetron HCL 4 MG/2 ML VIAL IVPUSH (16:49)
[2023-03-07] MEDS: 0.9 % Sodium Chloride Flush 3 ML SYRINGE IVFLUSH (19:59)
[2023-03-07] MEDS: Acetaminophen 1,000 MG/100 ML PIGGYBACK 400 MG IV (19:59)
[2023-03-08] MEDS: Acetaminophen 1,000 MG/100 ML PIGGYBACK 400 MG IV (02:23)
[2023-03-08 04:00] VITALS: BP 155/76; PULSE 88; RESP 18; TEMP 36.7; O2SAT 99
[2023-03-08 05:47] LABS: MANUAL DIFF FLAG NO
[2023-03-08 05:54] LABS: Basophils Percent Auto 0.1 % (0-2); Hematocrit 44.5 % (42.0-52.0); Hemoglobin 14.5 g/dl (14.0-18.0); Imm Gran Abs Auto 0.01 X10*3/uL (0.00-0.03); Imm Gran Pct Auto 0.1 % (0.0-0.4); Lymphocytes Absolute Auto 0.8 X10*3/uL (1.2-4.9); Lymphocytes Percent Auto 10.6 % (20-40); Mean Corpuscular HGB Conc 32.6 g/dl (31.0-36.0); Mean Corpuscular Hemoglobin 28.4 pg (27.0-33.0); Mean Corpuscular Volume 87.1 fL (80.0-98.0); Mean Platelet Volume 11.5 fL (9.4-12.4); Monocytes Absolute Auto 0.5 X10*3/uL (0.1-1.2); Monocytes Percent Auto 6.2 % (2-11); Neutrophils Absolute Auto 6.2 x10*3/uL (2.0-8.3); Platelet Count 275 X10*3/uL (160-400); Red Blood Count 5.11 X10*6/uL (4.60-5.80); Red Cell Distribution Width 12.6 % (11.0-16.0); White Blood Count 7.5 X10*3/uL (4.8-10.8)
[2023-03-08] MEDS: Lactated Ringers 1,000 ML 100 ML IVCONT (06:05)
[2023-03-08 06:20] LABS: Anion Gap 22 (12-20); Blood Urea Nitrogen 4 mg/dL (9-16); Calcium 9.8 mg/dL (8.4-10.2); Carbon Dioxide 14 mmol/L (22-29); Chloride 104 mmol/L (96-108); Creatinine Clr Calc Pharmacy 118.9; Estimated Glomerular Filt Rate > 60; Glucose Random 98 mg/dL (60-115); Potassium 4.6 mmol/L (3.3-5.1); Sodium 135 mmol/L (135-145)
[2023-03-08 07:13] VITALS: BP 143/87; PULSE 95; RESP 18; TEMP 36.4; O2SAT 98
[2023-03-08] MEDS: Famotidine/PF 20 MG/2 ML VIAL IVPUSH (07:17)
--- NOTE | 2023-03-08 10:09 | HO.POSTANES ---
Post Anesthesia Evaluation Post Anesthesia Evaluation Date of Service: 03/07/23 Vital Signs: Vital Signs Temp Pulse Resp BP Pulse Ox O2 Del Method 03/08/23 07:27 Room Air 03/08/23 07:13 97.6 F 95 18 143/87 H 98 Room Air 03/08/23 04:00 98.1 F 88 18 155/76 H 99 Room Air 03/07/23 23:58 97.3 F 94 16 156/79 H 99 Room Air Anesthesia: General Endotracheal-GETA Mental Status: Awake Pain Control: Satisfactory Nausea/Vomiting: None (y) Hydration: Adequate Anesthesia-Related Issues: No Anes. Related Issues
== END 2023-03-08 10:51 | disposition home or self-care (01) | DRG 403 ==
LOC: HO.SSSA 10:10 → HO.S3 11:07
PROVIDERS: Physician Assistant; Admitting Provider Surgery; Visit Provider Surgery
PROC: 0DB64Z3 Excision of Stomach, Percutaneous Endoscopic Approach, Vertical (ICD-10-PCS; CPT 43845; principal; 2023-03-07 07:30)
DX: E66.01 Morbid (severe) obesity due to excess calories (principal); K76.0 Fatty (change of) liver, not elsewhere classified; Z79.899 Other long term (current) drug therapy; Z68.41 Body mass index [BMI] 40.0-44.9, adult
CPT/HCPCS: 36415; 80048; 85014; 85018; 85025; 86850; 86900; 86901; 88304; 88305; 88307; 88342; 94660; A4649; C9088; C9145; J0131; J0690; J1100; J1170; J2250; J2405; J2795; J3010

== ENCOUNTER → 2023-03-07 06:11 | Outpatient (BNV) | payer OTHER, SELFPAY | PROVIDERS: Admitting Provider Surgery; Visit Provider Surgery | DX: E66.01 Morbid (severe) obesity due to excess calories (principal); Z68.41 Body mass index [BMI] 40.0-44.9, adult | CPT/HCPCS: 43659; 43775 ==

== ENCOUNTER 2023-03-13 13:23 | Outpatient (AMB) | payer OTHER, SELFPAY ==
--- NOTE | 2023-03-13 13:55 | A.OFFVIS_ITS ---
Intake VS Expanded 03/13/23 13:59 Height 5 ft 10 in Weight 259 lb BMI 37.2 BP 137/87 Blood Pressure Location Rt brachial Blood Pressure Position Sitting Pulse 95 Pulse Source Pulse Oximeter Temp 97.9 F Temperature Source Temporal Artery Scan Pulse Oximetry 97 Oxygen Delivery Method Room Air Body Fat 98.2 Body Fat Percentage 37.9 Free Fat Mass 160.8 Muscle Mass 152.8 Visceral Mass 17.0 Water Mass 109.8 BMR 2,260 Intake Visit Reasons: (OV) 6 Days PO LSG 03/07/23 Allergies No Known Allergies Allergy (Verified 03/13/23 13:57) HPI HPI Comments History of Present Illness Details 27 yo male POD 7 s/p LSG on 03/06/23. pos BM no pain dwight 3 celebrate 4 in 1 shakes w 1 scoop each and 24 oz water PFSH Medical History (Updated 03/08/23 @ 00:02 by Elsy Lauren) Adjustment disorder, unspecified Morbid obesity Vitamin A deficiency Vitamin B12 deficiency Vitamin D deficiency Zinc deficiency Surgical History (Updated 03/13/23 @ 13:58 by Amy Stephenson CMA) S/P laparoscopic sleeve gastrectomy Family History Mother Asthma Father No problems noted. Daughter No problems noted. Social History Household Members: None Housing: Apartment Are you a primary career based intervention coordinator to a significant other at home: No Do you presently have visiting nurse or other home services: No Alcohol intake: never Patient Tobacco Use Status: Never used Tobacco Physical Exam Vital Signs: Last Vital Signs Temp 97.9 F 03/13/23 13:59 Pulse 95 03/13/23 13:59 BP 137/87 03/13/23 13:59 Pulse Ox 97 03/13/23 13:59 Oxygen Delivery Method Room Air 03/13/23 13:59 BMI result Body Mass Index 37.2 GI Inspection: Yes incision (c/d/i) Assessment & Plan Assessment & Plan (1) S/P laparoscopic sleeve gastrectomy: Code(s): Z98.84 - Bariatric surgery status Plan: POD 6 s/p LSG on 03/07/[address] Gutierrez Weight loss prior to surgery was 26 pounds or 8.3% TBWL. Original weight on 11/13/22 was 310.2 pounds and op weight was 284.2 pounds. Be sure to text Dr Gutierrez exactly 1 week after surgery your weight from your home scale so he can adjust your meal plan. Continue meal plan until f/u w Bergeron in 3 weeks May shower, no submersion in bath for another week Continue abdominal binder with activity and exercise for the next 2 weeks. Exercise prior to surgery was elliptical and stationary bike, may resume tomorrow No abdominal exercises for 6 weeks post operatively Will be emailed link to post op video for review Reminded of the pace of drinking, 2 mL per minute, 1 oz/15 min. Medications: Discontinued vitamin A palmitate 10,000 units orally one per day; 30 caps 1RF E50.9 - Vitamin A deficiency, unspecified Coding Level of Care Code Global (52448) Diagnoses S/P laparoscopic sleeve gastrectomy Z98.84
[2023-03-13 13:59] VITALS: BP 137/87; PULSE 95; TEMP 36.6; O2SAT 97; BMI 37.2
== END 2023-03-13 14:55 | disposition home or self-care (01) ==
PROVIDERS: Visit Provider Physician Assistant Surgical
DX: E66.01 Morbid (severe) obesity due to excess calories (principal); Z68.41 Body mass index [BMI] 40.0-44.9, adult; Z98.84 Bariatric surgery status
CPT/HCPCS: 43659; 43775; 99024

== ENCOUNTER → 2023-03-13 13:23 | Outpatient (BNVA) | payer OTHER, SELFPAY | PROVIDERS: Visit Provider Physician Assistant Surgical ==

== ENCOUNTER 2023-04-04 11:50 | Outpatient (AMB) | payer OTHER, SELFPAY ==
--- NOTE | 2023-04-04 12:04 | A.OFFVIS_ITS ---
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 Presents for 1 month post op visit. Weight today is 246.4 pounds, with a BMI of 35.3. There has been a 63.8 pound weight loss,(initial weight 310.2 pounds) since starting the program on 11/13/22 reflecting a 20.5% total body weight loss and a weight loss of 37.8 pounds since surgery (operative weight 284.2 pounds) reflecting a 13.3% TBWL since surgery. No complaints of nausea, emesis, abdominal pain or reflux. Reports infrequent but normal bowel movements every 1- 2 days and uses stool softeners regularly. He has been communicating w Dr Lamb and hs had a very slight area of drainage from the right medial edge of the midline incision. He has been covering it at night. No complaints of pain or fever or redness. Present meal plan includes: 3 shakes isopure 1 scoop in 8 oz water, 8-10, 11-1, 2-4 ZP bar 5-8 64 oz daily ?Exercise routine includes: treadmill, bike, elliptical daily, 90 minutes total [facility] Medical History Adjustment disorder, unspecified Vitamin A deficiency Zinc deficiency Vitamin B12 deficiency Vitamin D deficiency Morbid obesity Surgical History S/P laparoscopic sleeve gastrectomy Family History Mother Asthma Father No problems noted. Daughter No problems noted. Social History Household Members: None Housing: Apartment Are you a primary home care administrator to a significant other at home: No Do you presently have visiting nurse or other home services: No Alcohol intake: never Patient Tobacco Use Status: Never used Tobacco Review of Systems Const All systems reviewed & are unremarkable except as noted in HPI and below Physical Exam GI Other: 2 mm scab to the right lat edge of midline incision, no erythema, drainage, tenderness, warmth Assessment & Plan Assessment & Plan (1) S/P laparoscopic sleeve gastrectomy: Code(s): Z98.84 - Bariatric surgery status Plan: continue meal plan and exercise plan rtc [address] Lamb Coding Level of Care Code Global (43252) Diagnoses S/P laparoscopic sleeve gastrectomy Z98.84
[2023-04-04 12:12] VITALS: BP 146/70; PULSE 87; TEMP 36.3; O2SAT 98; BMI 35.4
== END 2023-04-04 13:07 | disposition home or self-care (01) ==
PROVIDERS: Visit Provider Physician Assistant Surgical
DX: Z98.84 Bariatric surgery status (principal)
CPT/HCPCS: 99024

== ENCOUNTER → 2023-04-04 11:50 | Outpatient (BNVA) | payer OTHER, SELFPAY | PROVIDERS: Visit Provider Physician Assistant Surgical ==

== ENCOUNTER 2023-05-23 14:02 | Outpatient (AMB) | payer OTHER, SELFPAY ==
--- NOTE | 2023-05-23 14:12 | A.OFFVIS_ITS ---
Intake VS Expanded 05/23/23 14:17 BP 140/81 H Blood Pressure Location Rt brachial Blood Pressure Position Sitting Pulse 70 Pulse Source Pulse Oximeter Temp 97.8 F Temperature Source Temporal Artery Scan Pulse Oximetry 98 Oxygen Delivery Method Room Air Height 5 ft 10 in Weight 221 lb 12.8 oz BMI 31.8 Body Fat % 31.1 Body Fat Mass 69.0 Fat Free Mass 152.8 Visceral Fat Rating 11.0 Body Water % 48.9 Body Water Mass 108.4 Muscle Mass/Score 145.2 Basal Metabolic Rate/Score 2,102 Intake Visit Reasons: (OV) 27 Days PO LSG 03/07/23 Geriatric Assistant Required: No Allergies No Known Allergies Allergy (Verified 05/23/23 14:14) Medication List - Last Reconciled 05/23/23 by ALEXIA Harris [celebrate MVI PO DAILY] pantoprazole 40 mg PO DAILY sucralfate 10 mL PO BID HPI HPI Comments History of Present Illness Details This?a?27?yo male who is s/p LSG without hiatal hernia repair on?03/07/23. Presents for 2.5 month post op visit. Weight today is 221.8 pounds, with a BMI of 31.8. There has been a 88.4 pound weight loss,(initial weight 310.2 pounds) since starting the program on 11/13/22 reflecting a 28.4% total body weight loss and a weight loss of 62.4 pounds since surgery (operative weight 284.2 pounds) reflecting a 21.9% TBWL since surgery. No complaints of nausea, emesis, abdominal pain or reflux. Reports infrequent but normal bowel movements every 3 days and uses stool softeners regularly. Having celebrate mvi daily, does not want to change meal plan Present meal plan includes: 3 shakes isopure 1 scoop in 8 oz water, 8-10, 11-1, 2-4 ZP bar 5-8 40 oz daily ?Exercise routine includes: treadmill, bike, daily, 90 min PFS Medical History Adjustment disorder, unspecified Vitamin A deficiency Zinc deficiency Vitamin B12 deficiency Vitamin D deficiency Morbid obesity Surgical History S/P laparoscopic sleeve gastrectomy Family History Mother Asthma Father No problems noted. Daughter No problems noted. Social History Household Members: None Housing: Apartment Are you a primary patient care director to a significant other at home: No Do you presently have visiting nurse or other home services: No Alcohol intake: never Patient Tobacco Use Status: Never used Tobacco Physical Exam Const General: healthy appearing and no acute distress Resp Effort & Inspection: normal respiratory effort Auscultation: clear to auscultation bilaterally Cardio Rate: regular rate Rhythm: regular rhythm GI Auscultation: normal bowel sounds Extrem General: Yes normal to inspection Assessment & Plan Assessment & Plan (1) Obesity (BMI 30-39.9): Code(s): E66.9 - Obesity, unspecified Plan: Making excellent progress. Will slightly decrease his meal plan, continuing with 3 isopureshakes, 1 scoop, 1 scoop, half scoop, zone perfect bar. He will communicate with Dr. Gutierrez as he has been doing and may want to incorporate food at his 3 month postoperative date, in approximately 2 weeks. Continue exercise. Tracking calories is a little difficult for him as his mach dallin at home including treadmill and bicycle do not have that capacity, but as he is making such exceptional progress he was encouraged to continue doing what he is doing. Coding Level of Care Code Global (57045) Diagnoses Obesity (BMI 30-39.9) E66.9
[2023-05-23 14:17] VITALS: BP 140/81; PULSE 70; TEMP 36.6; O2SAT 98; BMI 31.8
== END 2023-05-23 14:47 | disposition home or self-care (01) ==
PROVIDERS: Visit Provider Physician Assistant Surgical
DX: E66.9 Obesity, unspecified (principal); Z68.31 Body mass index [BMI] 31.0-31.9, adult
CPT/HCPCS: 99024

== ENCOUNTER → 2023-05-23 14:02 | Outpatient (BNVA) | payer OTHER, SELFPAY | PROVIDERS: Visit Provider Physician Assistant Surgical ==

== ENCOUNTER 2023-06-25 15:20 | Outpatient (AMB) | payer OTHER, SELFPAY ==
--- NOTE | 2023-06-25 15:22 | A.OFFVIS_ITS ---
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 Presents for 3.5 month post op visit. Weight today is 208.6 pounds, with a BMI of 29.9. There has been a 101.6 pound weight loss,(initial weight 310.2 pounds) since starting the program on 11/13/22 reflecting a 32.7% total body weight loss and a weight loss of 75.6 pounds since surgery (operative weight 284.2 pounds) reflecting a 26.6% TBWL since surgery. No complaints of nausea, emesis, abdominal pain or reflux. Reports infrequent but normal bowel movements every 3 days and uses stool softeners regularly. Having celebrate mvi daily, he reports that he is doing very well, very happy with his progress. Present meal plan includes: 2 shakes isopure 1 scoop in 8 oz almond milk, 8-10, 11-1, ZP bar 2-4 meal 6 forks protein and 4 forks veg Drinking 50-60 oz daily Exercise routine includes: daily treadmill, bike, daily, 60 min each PFSH Medical History Adjustment disorder, unspecified Vitamin A deficiency Zinc deficiency Vitamin B12 deficiency Vitamin D deficiency Morbid obesity Surgical History S/P laparoscopic sleeve gastrectomy Family History Mother Asthma Father No problems noted. Daughter No problems noted. Social History Household Members: None Housing: Apartment Are you a primary managed care specialist to a significant other at home: No Do you presently have visiting nurse or other home services: No Alcohol intake: never Patient Tobacco Use Status: Never used Tobacco Review of Systems Const All systems reviewed & are unremarkable except as noted in HPI and below Physical Exam Vital Signs: Last Vital Signs Temp 97.6 F 06/25/23 15:30 Pulse 64 06/25/23 15:30 BP 120/62 06/25/23 15:30 Pulse Ox 97 06/25/23 15:30 Oxygen Delivery Method Room Air 06/25/23 15:30 BMI result Body Mass Index 29.9 Const General: healthy appearing and no acute distress Resp Effort & Inspection: normal respiratory effort Auscultation: clear to auscultation bilaterally Cardio Rate: regular rate Rhythm: regular rhythm GI Auscultation: normal bowel sounds Extrem General: Yes normal to inspection Assessment & Plan Assessment & Plan (1) Overweight (BMI 25.0-29.9): Code(s): E66.3 - Overweight Plan: Patient is making excellent progress. He wishes to continue his current meal plan although states his goal is to continue to lose weight and therefore we will adjust it slightly. New meal plan: 2 shakes isopure 1 scoop in 8 oz almond milk, 8-10, (1/2 scoop) 11-1, ZP bar 2-4 meal 6 forks protein and 4 forks veg Continue current exercise plan, despite the fact that he is unable to track his calories on the machines that he has at home, he is clearly making excellent progress. Return to clinic 6 weeks. Coding Level of Care Code Est Pt Level 3 (83921) Diagnoses Overweight (BMI 25.0-29.9) E66.3
[2023-06-25 15:30] VITALS: BP 120/62; PULSE 64; TEMP 36.4; O2SAT 97; BMI 29.9
== END 2023-06-25 15:58 | disposition home or self-care (01) ==
PROVIDERS: Visit Provider Physician Assistant Surgical
DX: E66.3 Overweight (principal); Z68.29 Body mass index [BMI] 29.0-29.9, adult; Z90.3 Acquired absence of stomach [part of]; Z98.84 Bariatric surgery status
CPT/HCPCS: 99213

== ENCOUNTER → 2023-06-25 15:20 | Outpatient (BNVA) | payer OTHER, SELFPAY | PROVIDERS: Visit Provider Physician Assistant Surgical | DX: E66.3 Overweight (principal); F43.20 Adjustment disorder, unspecified; E50.9 Vitamin A deficiency, unspecified; E53.8 Deficiency of other specified B group vitamins; E55.9 Vitamin D deficiency, unspecified; E56.8 Deficiency of other vitamins; Z68.29 Body mass index [BMI] 29.0-29.9, adult; Z90.3 Acquired absence of stomach [part of] | CPT/HCPCS: 99212 ==